=== PATIENT | male | born 1965 | race Hispanic/Latino ===

== ENCOUNTER 2022-01-30 11:40 | Outpatient (CLI) | payer BC | END 2022-01-30 11:41 | disposition home or self-care (01) | LOC: BICRAD 11:40 | PROVIDERS: ATTEND Family Medicine | DX: S62.306A Unspecified fracture of fifth metacarpal bone, right hand, initial encounter for closed fracture (principal) ==

== ENCOUNTER 2024-05-19 07:30 | Observation (INO) | payer BC ==
[2024-05-19] MEDS ORDERED: Ketorolac Tromethamine 30 MG (1 mL) VIAL ONE (07:47)
[2024-05-19 07:58] LABS: #Basophils 0.04 10x3/uL (0.0-0.2); #Eosinophils Less than 0.03 10x3/uL (0.0-0.7); %Basophils 0.2 % (0.0-1.0); %Lymphocytes 7.2 % (21.0-51.0); %Monocytes 10.9 % (0.0-10.0); Hematocrit 41.4 % (42.0-52.0); Hemoglobin 14.3 g/dL (14.0-18.0); Mean Corpuscular HGB CONC 34.5 g/dL (32.0-36.0); Mean Corpuscular Hemoglobin 29.5 pg (27.0-31.0); Mean Corpuscular Volume 85.5 fL (78.0-98.0); Mean Platelet Volume 10.2 fL (7.4-10.4); Platelet Count 235 10x3/uL (130-400); Red Blood Cell (RBC) Count 4.84 mill/uL (4.70-6.10)
[2024-05-19 08:12] LABS: Bacteria/HPF None Seen HPF (None Seen); Bilirubin Negative (Negative); Blood, Urine Trace (Negative); CAUTI Indications for Culture Pelvic or flank pain; Glucose, Urine (Dipstick) Normal (Negative); Ketone, Urine Negative (Negative); Leukocyte Negative Leu/uL (Negative); Nitrite Negative (Negative); Protein, Urine (Dipstick) 70 mg/dL (Neg-Trace); Specific Gravity, Urine 1.028 (1.002-1.036); Squamous Epithelial 0-3 HPF (0-3); Urobilinogen Normal mg/dL (Less than 2); pH, Urine 5.5 (5.0-9.0)
[2024-05-19 08:13] LABS: Clarity Hazy (Clear)
[2024-05-19 08:14] LABS: Urine Culture Reflex No No
[2024-05-19 08:15] LABS: ALT (SGPT) 8 U/L (Less than 45); AST (SGOT) 13 U/L (11-34); Albumin 3.8 g/dL (3.1-4.5); Alkaline Phosphatase 90 U/L (40-110); Anion Gap 15 mmol/L (10-20); BUN (Urea Nitrogen) 14 mg/dL (8.4-25.7); Bilirubin, Total 1.1 mg/dL (0.3-1.2); Calc. Creatinine Clearance 0 mL/min (70-130); Calcium 9.3 mg/dL (7.8-10.44); Carbon Dioxide 24 mmol/L (23-31); Chloride 104 mmol/L (98-107); Estimated GFR 64; Globulin 3.8 g/dL (2.4-3.5); Glucose 128 mg/dL (80-115); Lipase 15 U/L (8-78); Potassium 4.1 mmol/L (3.5-5.1); Protein, Total 7.6 g/dL (5.8-8.1); Sodium 139 mmol/L (136-145)
[2024-05-19] MEDS ORDERED: Sodium Chloride 0.9% 100 ML ONE ×2 (09:23→12:41)
[2024-05-19] MEDS ORDERED: Piperacillin/Tazobactam 3.375 GM VIAL ONE ×2 (09:23→12:41)
[2024-05-19] MEDS ORDERED: Acetaminophen 325 MG TAB PO PRN (09:38)
[2024-05-19] MEDS ORDERED: Ondansetron PF 4 MG/2 ML Vial IVP PRN ×2 (09:38→14:21)
[2024-05-19] MEDS ORDERED: Dextrose 50% Abboject 50 ML SYRINGE SLOW IVP PRN ×2 (09:38→14:21)
[2024-05-19] MEDS ORDERED: Glucagon 1 MG/ML KIT IM PRN ×2 (09:38→14:21)
[2024-05-19] MEDS ORDERED: Ipratropium/Albuterol 3 ML NEB NEB PRN ×2 (09:38→14:21)
[2024-05-19] MEDS ORDERED: Mag-Al 1200 mg/1200 mg/30 ML UDCUP PO PRN (09:38)
[2024-05-19] MEDS ORDERED: Calcium Carbonate 500 MG ChewTAB PO PRN ×2 (09:38→14:21)
[2024-05-19] MEDS ORDERED: hydrALAZINE 20 MG/ML VIAL SLOW IVP PRN (09:38)
[2024-05-19] MEDS ORDERED: Dextrose 5% in Water 1,000 ML IV PRN ×2 (09:38→14:21)
[2024-05-19] MEDS ORDERED: traMADol HCl 50 MG TAB PO PRN (09:40)
[2024-05-19] MEDS ORDERED: Indocyanine Green 25 MG/10 ML VIAL IVP SCH (10:45)
[2024-05-19] MEDS ORDERED: PROPOFOL 0 ML ONE (12:07)
[2024-05-19] MEDS ORDERED: fentaNYL PF 100 MCG/2 ML SYRINGE ONE (12:07)
[2024-05-19] MEDS ORDERED: Lidocaine 1% PF 5 ML VIAL ONE (12:11)
[2024-05-19] MEDS ORDERED: Rocuronium Bromide 10 MG/ML (10ML VIAL) ONE (12:11)
[2024-05-19] MEDS ORDERED: Indocyanine Green 25 MG/10 ML VIAL ONE (12:14)
[2024-05-19] MEDS ORDERED: Bupivacaine 0.25% HCL 30 ML VIAL ONE (12:32)
[2024-05-19] MEDS ORDERED: EPINEPHrine 1 MG/ML VIAL ONE (12:32)
[2024-05-19] MEDS ORDERED: Ondansetron PF 4 MG/2 ML Vial ONE (13:14)
[2024-05-19] MEDS ORDERED: Dexamethasone 20 MG/5 ML VIAL ONE (13:14)
[2024-05-19] MEDS ORDERED: PHENYLEPHRINE-NS 100 MCG/ML 10 ML SYRINGE ONE (13:16)
[2024-05-19] MEDS ORDERED: PACU-Morphine 4MG/ML VIAL SLOW IVP PRN (14:00)
[2024-05-19] MEDS ORDERED: Promethazine HCl 25 MG/ML VIAL IM PRN (14:00)
[2024-05-19] MEDS ORDERED: Morphine Sulfate 2 MG/ML SYRINGE SLOW IVP PRN (14:00)
[2024-05-19] MEDS ORDERED: Ondansetron HCl/PF 4 MG/2 ML Vial IVP PRN (14:00)
[2024-05-19] MEDS ORDERED: HYDROmorphone 2 MG/ML VIAL SLOW IVP PRN (14:00)
[2024-05-19] MEDS ORDERED: SUGAMMADEX SODIUM 200 MG/2 ML VIAL ONE (14:06)
[2024-05-19] MEDS ORDERED: HYDROcodone/Acetaminophen 10/325 mg Tablet PO PRN (14:21)
[2024-05-19 16:05] VITALS: BMI 29.0
[2024-05-19] MEDS: Piperacillin/Tazobactam 3.375 GM in Sodium Chloride 0.9% 100 ML IVPB SCH ×2 (16:35→21:44)
[2024-05-19] MEDS: Ketorolac Tromethamine 30 MG (1 mL) VIAL IVP SCH (16:35)
[2024-05-19] MEDS: HYDROcodone/Acetaminophen 5/325 mg Tablet PO PRN (17:14)
[2024-05-19] MEDS: D5 1/2 NS w/20 mEq KCL 1,000 ML IV SCH (18:37)
[2024-05-19] MEDS ORDERED: Famotidine 20 MG TAB PO SCH (21:00)
[2024-05-19] MEDS: Famotidine 20 MG TAB PO SCH (21:41)
[2024-05-19] MEDS: Docusate 100 MG CAP PO SCH (21:41)
[2024-05-19] MEDS: FLU (Fluarix Triv) TS24-25(6MOS UP)/PF 45 MCG/0.5 ML Syringe IM ONE (21:42)
[2024-05-19] MEDS: Famotidine/PF 20 mg/2ml Vial SLOW IVP SCH (21:42)
[2024-05-19] MEDS: Lactated Ringer's 1,000 ML IV SCH (21:44)
[2024-05-20 06:03] LABS: #Basophils Less than 0.03 10x3/uL (0.0-0.2); #Eosinophils Less than 0.03 10x3/uL (0.0-0.7); %Basophils 0.1 % (0.0-1.0); %Lymphocytes 4.6 % (21.0-51.0); %Monocytes 8.1 % (0.0-10.0); %Neutrophils 86.4 % (42.0-75.0); Hematocrit 35.4 % (42.0-52.0); Hemoglobin 11.8 g/dL (14.0-18.0); Mean Corpuscular HGB CONC 33.3 g/dL (32.0-36.0); Mean Platelet Volume 10.2 fL (7.4-10.4); Platelet Count 176 10x3/uL (130-400); Red Blood Cell (RBC) Count 4.07 mill/uL (4.70-6.10)
[2024-05-20 07:51] VITALS: BP 103/67; TEMP 98.1
[2024-05-20] MEDS: Enoxaparin 30 MG (0.3 mL) SYRINGE SC SCH (08:35)
[2024-05-21] MEDS ORDERED: Enoxaparin 40 MG (0.4 mL) SYRINGE SC SCH (09:00)
== END 2024-05-20 12:45 | disposition home or self-care (01) ==
LOC: ERS 07:30 → SURG B 09:42
PROVIDERS: ADMIT Surgery; ATTEND Surgery
PROC: 0FT44ZZ Resection of Gallbladder, Percutaneous Endoscopic Approach (ICD-10-PCS; principal; 2024-05-20)
PROC: BF03YZZ Plain Radiography of Gallbladder and Bile Ducts using Other Contrast (ICD-10-PCS; 2024-05-20)
DX: K80.12 Calculus of gallbladder with acute and chronic cholecystitis without obstruction (principal); D72.829 Elevated white blood cell count, unspecified
CPT/HCPCS: 36415; 76705; 80053; 81001; 83690; 85025; 87040; 88304; 96374; 96375; C1889; G0378; J0171; J0665; J1100; J1650; J1885; J2405; J2543; J2704; J3480; J3490; J7042; S2900